=== PATIENT | female | born 1975 | race Caucasian/White ===

== ENCOUNTER 2017-02-15 11:14 | Emergency (ER) | payer OTHER ==
[2017-02-15 12:07] LABS: HEMOGLOBIN 14.5 gm/dl (12.3-15.3); RED BLOOD COUNT 4.73 M/UL (4.00-5.10); WHITE BLOOD COUNT 14.6 K/UL (4.5-11.0)
[2017-02-15 12:24] LABS: BUN/CREATININE RATIO 17 (0-10)
== END 2017-02-15 13:06 | disposition home or self-care (01) ==
LOC: ER1 11:14
PROVIDERS: Physician Assistant Medical
DX: J02.0 Streptococcal pharyngitis (principal); F17.210 Nicotine dependence, cigarettes, uncomplicated; K21.9 Gastro-esophageal reflux disease without esophagitis; Z79.899 Other long term (current) drug therapy
CPT/HCPCS: 36415; 80053; 81001; 85025; 86403; 87081; 87880; 96372; 99283; J1100

== ENCOUNTER 2021-08-29 11:21 | Emergency (ER) | payer OTHER ==
[~2021-08-29 11:21] MED LIST: AUGMENTIN 875-1 EACH PO; BACTROBAN OINT22 GM EXT; NAPROSYN500 MG PO
[2021-08-29] MEDS ORDERED: PREDNISONE 20 M20 MG PO (13:30)
[2021-08-29] MEDS ORDERED: CYCLOBENZAPRINE10 MG PO (13:30)
== END 2021-08-29 14:36 | disposition home or self-care (01) ==
LOC: ER1 11:21
DX: S39.012A Strain of muscle, fascia and tendon of lower back, initial encounter (principal); Z97.10 Presence of artificial limb (complete) (partial), unspecified; F17.210 Nicotine dependence, cigarettes, uncomplicated; Z86.16 Personal history of COVID-19; Z87.442 Personal history of urinary calculi; Z90.710 Acquired absence of both cervix and uterus; X50.0XXA Overexertion from strenuous movement or load, initial encounter
CPT/HCPCS: 72131; 81001; 96374; 96375; 99284; J1100; J2270; J2405